=== PATIENT | female | born 1970 | race Caucasian/White ===

== ENCOUNTER 2017-12-20 15:26 | Emergency (ER) | payer SELFPAY ==
[~2017-12-20] VITALS: Ht 162.6 cm; Wt 62.0 kg
[~2017-12-20 15:26] MED LIST: UNKNOWN ANTIBIOTIC
[2017-12-20] MEDS ORDERED: ONDANSETRON HCL 4MG/2ML VIAL IV STA (16:35)
[2017-12-20] MEDS ORDERED: MORPHINE SULFATE 4 MG/ML CPJ (NOT FOR IM USE) IV STA (16:35)
[2017-12-20] MEDS ORDERED: FAMOTIDINE 20MG/2ML VIAL IV STA (16:35)
[2017-12-20 17:01] LABS: BASOPHILS % 0.9 % (0.0-2.0); EOSINOPHILS % 3.7 % (0.0-5.0); HEMOGLOBIN. 12.9 g/dL (12.0-16.0); LYMPHOCYTES % 18.9 % (20.0-50.0); MEAN CORPUSCULAR HEMOGLOBIN 28.7 pg (28.0-32.0); MEAN CORPUSCULAR VOLUME 84.4 fL (81.0-99.0); MEAN PLATELET VOLUME 7.9 fl (7.4-10.4); MONOCYTES % 5.3 % (2.0-8.0); NEUTROPHILS % 71.2 % (40.0-76.0); PLATELET 306 x1000/uL (130-400); RED CELL DISTRIBUTION WIDTH 13.1 % (11.6-14.6)
[2017-12-20 17:05] LABS: CHLORIDE 106 mEq/L (98-107)
[2017-12-20 17:07] LABS: PROTHROMBIN TIME 10.7 sec (9.4-11.6)
[2017-12-20 17:09] LABS: CLARITY URINE CLEAR (CLEAR); COLOR URINE YELLOW (YELLOW); KETONES URINE NEGATIVE (NEGATIVE); LEUKOCYTE ESTERASE URINE NEGATIVE (NEGATIVE); NITRITE URINE NEGATIVE (NEGATIVE); OCCULT BLOOD URINE 3+ (NEGATIVE); PROTEIN URINE NEGATIVE (NEGATIVE); SPECIFIC GRAVITY URINE 1.007 (1.005-1.030); UROBILINOGEN URINE 0.2 E.U./dL (0.2-1.0)
[2017-12-20 17:09] LABS: ETHANOL BLOOD < 10 mg/dL
[2017-12-20 17:14] LABS: HCG SCREEN NEGATIVE
[2017-12-20 17:24] LABS: *AMPHETAMINES SCREEN URINE NEGATIVE (NEGATIVE); *BARBITURATES SCREEN URINE NEGATIVE (NEGATIVE); *BENZODIAZEPINES SCREEN URINE NEGATIVE (NEGATIVE); *COCAINE SCREEN URINE NEGATIVE (NEGATIVE); CANNABINOID URINE SCREEN NEGATIVE (NEGATIVE); METHADONE URINE SCREEN NEGATIVE (NEGATIVE); OPIATES URINE SCREEN NEGATIVE (NEGATIVE); PHENCYCLIDINE URINE SCREEN NEGATIVE (NEGATIVE)
[2017-12-20] MEDS ORDERED: KETOROLAC 30MG/ML VIAL IV ONE (19:45)
[2017-12-20 19:50] VITALS: BP 123/73
== END 2017-12-20 20:44 | disposition home or self-care (01) ==
LOC: ER 15:26
DX: R10.13 Epigastric pain (principal); R11.10 Vomiting, unspecified
CPT/HCPCS: 36415; 71045; 76700; 80053; 80305; 81003; 83690; 83880; 84484; 84703; 85025; 85610; 93005; 96374; 96375; 99285; G0482; J1885; J2270; J2405; J3490; Z7610